=== PATIENT | male | born 1985 ===

== ENCOUNTER 2023-11-26 07:00 | Day surgery (SDC) | payer BC ==
[~2023-11-26 07:00] MED LIST: Dexamethasone 4 MG/ML 5 ML MDV ONE; EPINEPHrine 1 MG/ML SDV ONE; Ropivacaine 0.5% 5 MG/ML 30 ML SDV ONE; dexmedeTOMIDine HCl 200 MCG/2 ML SDV ONE
[2023-11-26] MEDS: Lactated Ringers 1,000 ML IV SCH (07:15)
[2023-11-26] MEDS ORDERED: Lactated Ringers 1,000 ML IV SCH (07:45)
[2023-11-26] MEDS ORDERED: Sodium Chloride 0.9% 10 ML Syringe FLUSH PRN (07:45)
[2023-11-26] MEDS ORDERED: Midazolam 1 MG/ML 2 ML SDV ONE ×2 (08:01→09:18)
[2023-11-26] MEDS ORDERED: fentaNYL 100 MCG/2 ML SDV ONE ×2 (08:01→10:45)
[2023-11-26] MEDS ORDERED: Lidocaine 1% 6 ML ONE (08:01)
[2023-11-26] MEDS ORDERED: Propofol 200 MG/20 ML SDV ONE ×3 (08:02→10:39)
[2023-11-26] MEDS ORDERED: Sodium Chloride 0.9% 10 ML Syringe FLUSH SCH (09:00)
[2023-11-26] MEDS ORDERED: Ondansetron 4 MG/2 ML SDV ONE ×2 (09:18→10:30)
[2023-11-26] MEDS ORDERED: Lidocaine 1% 5 ML VIAL ONE (09:18)
[2023-11-26] MEDS ORDERED: fentaNYL 250 MCG/5 ML SDV ONE (09:18)
[2023-11-26] MEDS ORDERED: Dexamethasone 4 MG/ML 5 ML MDV ONE (09:20)
[2023-11-26] MEDS ORDERED: Ketorolac 15 MG/ML SDV ONE (09:33)
[2023-11-26] MEDS ORDERED: ceFAZolin 2 GM Vial ONE (10:34)
[2023-11-26 12:05] VITALS: BP 118/84; PULSE 78
== END 2023-11-26 12:35 | disposition home or self-care (01) ==
LOC: JD.SDS 07:00
PROVIDERS: ATTEND Orthopaedic Surgery
DX: S42.001A Fracture of unspecified part of right clavicle, initial encounter for closed fracture (principal); E03.9 Hypothyroidism, unspecified; Z79.899 Other long term (current) drug therapy; Z88.1 Allergy status to other antibiotic agents; X58.XXXA Exposure to other specified factors, initial encounter
CPT/HCPCS: 23515; 76000; C1713; J0171; J0690; J1100; J2250; J2405; J2704; J2795; J3010; J7120; 00450; 64415; J1885; J3490